=== PATIENT | female | born 1990 | race Caucasian/White ===

== ENCOUNTER 2017-02-16 11:29 | Emergency (ER) | payer MEDICAID | END 2017-02-16 15:21 | disposition home or self-care (01) | LOC: D.ER 11:29 | DX: O20.9 Hemorrhage in early pregnancy, unspecified (principal); Z3A.00 Weeks of gestation of pregnancy not specified; R10.9 Unspecified abdominal pain ==

== ENCOUNTER 2017-03-08 15:10 | Inpatient (IN) | payer MEDICAID ==
[2017-03-08 15:53] LABS: APPEARANCE TURBID (CLEAR); BILIRUBIN NEGATIVE (NEGATIVE); COLOR YELLOW (YELLOW); GLUCOSE NEGATIVE (NEGATIVE); KETONE NEGATIVE (NEGATIVE); NITRITE NEGATIVE (NEGATIVE); PROTEIN TRACE mg/dL (NEGATIVE); UROBILINOGEN NORMAL (NORMAL)
[2017-03-08 16:00] LABS: HEMATOCRIT 32.7 % (36.0-48.0); HEMOGLOBIN 11.6 g/dL (12-16); LYMPHOCYTES 13.9 % (15-50); MCH 30.9 pg (26.0-34.0); MCHC 35.5 g/dL (31.0-37.0); MCV 87.2 fL (80.0-100.0); MEAN PLATELET VOLUME 8.9 fL (7.4-10.4); NEUTROPHILS 80.8 % (40-80); PLATELET COUNT 297 10x3/uL (130-400); RBC 3.75 10x6/uL (4.00-5.40); RDW 12.3 % (11.5-14.5); WBC 11.2 10x3/uL (4.8-10.8)
[2017-03-08 16:10] LABS: AMORPHOUS SEDIMENT >1+ /lpf (NONE SEEN); BACTERIA MANY /hpf (NONE SEEN); CALCIUM OXALATE CRYSTALS 0-5 /hpf (NONE SEEN); GRANULAR CAST OCC /lpf (NONE SEEN); HYALINE CAST OCC /lpf (NONE SEEN)
[2017-03-08 16:17] LABS: ALBUMIN 3.1 g/dL (3.4-5.0); ALKALINE PHOSPHATASE 81 U/L (46-116); ALT (SGPT) 16 U/L (10-68); CALC OSMOLALITY 275 mosm/kg (275-300); CALCIUM 9.3 mg/dL (8.5-10.1); CARBON DIOXIDE 22.5 mmol/L (21.0-32.0); CHLORIDE - SERUM 106 mmol/L (98-107); CREATININE - SERUM 0.6 mg/dL (0.6-1.3); GLUCOSE 99 mg/dL (74-106); POTASSIUM - SERUM 3.6 mmol/L (3.5-5.1); PROTEIN - SERUM 7.2 g/dL (6.4-8.2); SODIUM 139 mmol/L (136-145); UREA NITROGEN 8 mg/dL (7-18); eGFR NON AFRICAN AMERICAN > 90 mL/min (90-120)
[2017-03-08 16:39] LABS: HCG - QUANTITATIVE (MATERNAL) 17896 mIU/mL
[2017-03-08 19:27] LABS: APPEARANCE HAZY (CLEAR); BILIRUBIN NEGATIVE (NEGATIVE); COLOR YELLOW (YELLOW); GLUCOSE NEGATIVE (NEGATIVE); KETONE LARGE mg/dL (NEGATIVE); NITRITE NEGATIVE (NEGATIVE); PROTEIN NEGATIVE (NEGATIVE); UROBILINOGEN NORMAL (NORMAL)
[2017-03-08 19:34] LABS: BACTERIA MANY /hpf (NONE SEEN); GRANULAR CAST RARE /lpf (NONE SEEN); HYALINE CAST RARE /lpf (NONE SEEN); MUCUS >1+ /lpf (NONE SEEN); WHITE CELLS - URINE >50 /hpf (0-5)
[2017-03-08 21:05] LABS: UDS - AMPHET NEGATIVE QUAL (NEGATIVE); UDS - BARB NEGATIVE QUAL (NEGATIVE); UDS - BENZO NEGATIVE QUAL (NEGATIVE); UDS - COCAINE NEGATIVE QUAL (NEGATIVE); UDS - OPIATE NEGATIVE QUAL (NEGATIVE); UDS - PCP NEGATIVE QUAL (NEGATIVE); UDS - THC NEGATIVE QUAL (NEGATIVE)
[2017-03-08 22:40] LABS: APPEARANCE HAZY (CLEAR); BILIRUBIN NEGATIVE (NEGATIVE); COLOR YELLOW (YELLOW); GLUCOSE 50 mg/dL (NEGATIVE); KETONE LARGE mg/dL (NEGATIVE); NITRITE POSITIVE (NEGATIVE); PROTEIN NEGATIVE (NEGATIVE); UROBILINOGEN NORMAL (NORMAL)
[2017-03-08 22:43] LABS: RED CELLS - URINE 0-5 /hpf (0-5)
[2017-03-08 22:44] LABS: BACTERIA MODERATE /hpf (NONE SEEN); WHITE CELLS - URINE 25-50 /hpf (0-5)
[2017-03-08 22:45] LABS: MUCUS <1+ /lpf (NONE SEEN)
--- NOTE | 2017-03-09 00:35 | NUR ---
PT ARRIVES TO UNIT VIA WC FROM ER FOR ADMISSION. PT AMBUALTES TO BR WITH NO ASSISTANCE TO VOID THEN TRANSFERS SELF TO BED. RN REMAINS AT PT BS FOR BARBI.
[2017-03-09 00:41] VITALS: BP 123/78; BMI 42.1
--- NOTE | 2017-03-09 01:25 | NUR ---
BARBI COMPLETE. PT IS A 26YO @ 16 WKS IUP WHO PRESENTED TO THE ER TODAY WITH C/O RIGHT FLANK PAIN AND BACK PAIN. PT ADMITTED WITH UTI AND POSSIBLE PYLO. 20G SL TO RIGHT HAND FLUSHED WITH 5CC NS WITHOUT DIFFICULTY. NO REDNESS OR EDEMA NOTED TO SITE. NS SET TO INFUSE VIA PUMP AT 200ML/HR PER ER MD ORDERS. SEE BARBI FOR FULL ASSESSMENT DETAILS. WATER MUG PROVIDED TO PT AT THIS TIME. POC DISCUSSED WITH PT, QUESTIONS ANSWERED. PT CURRENTLY HOMELESS. PT DENIES ANY NEEDS AT THIS TIME. BED IN LOW POSITION, SIDE RAILS UP TIMES 2, CALL LIGHT AND PHONE IN REACH. WILL CONT TO MONITOR PT STATUS.
--- NOTE | 2017-03-09 01:43 | NUR ---
RN TO PT BS TO HANG 1ST DOSE OF INVANZ 1GM IVPB. PT RESTING IN BED IN RIGHT TILT POSITION, WITH EYES CLOSED, IN NO ACUTE DISTRESS. RESPIRATIONS EVEN AND UNLABORED. PT AWAKENS EASILY WHEN SPOKEN TO. PT DENIES ANY NEEDS AT THIS TIME. BED IN LOW POSITION, SIDE RAILS UP TIMES 2, CALL LIGHT AND PHONE IN REACH. WILL CONT TO MONITOR PT STATUS.
--- NOTE | 2017-03-09 03:10 | NUR ---
PT. CALLED REQUESTING ADDITIONAL BLANKET. ROOM TEMP. COLD. AND ADJUSTED AND BLANKET GIVEN.
--- NOTE | 2017-03-09 04:40 | NUR ---
RN TO PT BS FOR ROUNDS. PT RESTING IN BED IN RIGHT TILT POSITION, WITH EYES CLOSED, IN NO ACUTE DISTRESS. RESPIRATIONS EVEN AND UNLABORED. BED IN LOW POSITION, SIDE RAILS UP TIMES 2, CALL LIGHT AND PHONE IN REACH. WILL CONT TO MONITOR PT STATUS.
[2017-03-09 05:31] VITALS: BP 131/60
--- NOTE | 2017-03-09 05:51 | NUR ---
RN CALLED TO PT BS TO ASSIST PT TO BR. PT AMBULATES TO BR WITH MINIMAL ASSISTANCE. PT ABLE TO VOID. PT RETURNED TO BED WITHOUT DIFFICLUTY. VS TAKEN AT THIS TIME. NEW BAG OF NS HUNG TO INFUSE VIA PUMP AT 200ML. FRESH ICE WATER PROVIDED TO PT AT THIS TIME. PT DENIES ANY FURTHER NEEDS. BED IN LOW POSITION, SIDE RAILS UP TIMES 2, CALL LIGHT AND PHONE IN REACH. WILL CONT TO MONITOR PT STATUS.
--- NOTE | 2017-03-09 07:30 | NUR ---
Called to room per pt request to provide assistance getting out of bed to bathroom. Encouragement given for pt to get up per self, she is able to do this with no assistance from RN. [place] pad and chux changed at this time. Voids 300ml of apparent clear urine but did not use castile soap prior to void as instructed, will attempt to collect next void for ordered UA.
[2017-03-09 07:33] LABS: BASOPHILS 0.1 % (0-2); EOSINOPHILS 0 % (0-7); HEMATOCRIT 29.3 % (36.0-48.0); HEMOGLOBIN 10.2 g/dL (12-16); IMMATURE GRANULOCYTES 0.3 % (0-5); LYMPHOCYTES 2.5 % (15-50); MCHC 34.8 g/dL (31.0-37.0); MCV 89.1 fL (80.0-100.0); MEAN PLATELET VOLUME 9.4 fL (7.4-10.4); MONOCYTES 5.2 % (2-11); NEUTROPHILS 91.9 % (40-80); RBC 3.29 10x6/uL (4.00-5.40); RDW 12.6 % (11.5-14.5); WBC 13.6 10x3/uL (4.8-10.8)
[2017-03-09 07:34] LABS: PLATELET COUNT 207 10x3/uL (130-400)
[2017-03-09 07:47] LABS: ALBUMIN 2.3 g/dL (3.4-5.0); ALKALINE PHOSPHATASE 64 U/L (46-116); ALT (SGPT) 13 U/L (10-68); BILIRUBIN - TOTAL 0.45 mg/dL (0.2-1.3); CALC OSMOLALITY 269 mosm/kg (275-300); CALCIUM 7.9 mg/dL (8.5-10.1); CARBON DIOXIDE 17.6 mmol/L (21.0-32.0); CHLORIDE - SERUM 104 mmol/L (98-107); CREATININE - SERUM 0.5 mg/dL (0.6-1.3); GLUCOSE 122 mg/dL (74-106); POTASSIUM - SERUM 3.3 mmol/L (3.5-5.1); PROTEIN - SERUM 5.6 g/dL (6.4-8.2); SODIUM 136 mmol/L (136-145); UREA NITROGEN 3 mg/dL (7-18); eGFR NON AFRICAN AMERICAN > 90 mL/min (90-120)
[2017-03-09 08:00] VITALS: BP 117/54
--- NOTE | 2017-03-09 08:00 | NUR ---
Pt complains of pain "just everywhere" VSS as charted on graph, Lungs clear and bowel sounds active x 4, pt does have a non-productive cough when questioned how long cough has been present her responses is "forever" IV fluids changed to D5%LR per MD orders. Pt noted to be flat on her back with head of bed elevated, explained why side lying or tilt was better during she does turn herself to left lateral, pillow to her back and between knees to assist with pain, she does complain that she never lays on her side because it does not "feel right" Rates pain at 4/10 that is constant and "all over" tylenol offered but she refuses at this time. Large apple juice per request, side rails up x 2 with phone and call light in reach and lights turned off per request.
--- NOTE | 2017-03-09 09:18 | NUR ---
Pt continues to be on left side, eyes closed and resp even. No distress noted so pt is left undisturbed at this time.
[2017-03-09 11:03] VITALS: BP 101/59
--- NOTE | 2017-03-09 11:03 | NUR ---
antibiotics via IVPB completed. Pt awake at this time and complaining/moaning rates pain at 10/10. Encouraged her to get up and void since she has not done so since 0730this am. She is able to get up per herself, verbal instructions given again to wash with castile soap wipes x 3 prior to collection of urine. Back to bed attempts to reposition to left side but complains that her left hand "feels numb" suggested that she change to her right side, pt does this and pillows placed to her back, between her knees and small pillow provided for use under abdomen. Tylenol per orders offered for pain relief and she is agreeable, also request sprite to drink. side rails up x 2 with phone in reach.
--- NOTE | 2017-03-09 11:10 | NUR ---
Meds given as charted on emar. lights turned off per pt reqeust.
[2017-03-09 11:26] LABS: APPEARANCE CLEAR (CLEAR); BILIRUBIN NEGATIVE (NEGATIVE); COLOR YELLOW (YELLOW); GLUCOSE 1000 mg/dL (NEGATIVE); KETONE LARGE mg/dL (NEGATIVE); NITRITE NEGATIVE (NEGATIVE); PROTEIN NEGATIVE (NEGATIVE); UROBILINOGEN NORMAL (NORMAL)
[2017-03-09 11:27] LABS: BACTERIA FEW /hpf (NONE SEEN); EPITHELIAL CELLS 0-5 /hpf (0-5); MUCUS <1+ /lpf (NONE SEEN); RED CELLS - URINE 0-5 /hpf (0-5)
--- NOTE | 2017-03-09 11:30 | NUR ---
temp rechecked and is 98.9 at this time. No needs voiced.
--- NOTE | 2017-03-09 11:45 | NUR ---
Pain reassesment at this time. Pt remains on her right side with eyes closed and resp even, no distress noted, left undisturbed at this time. Side rails are up x 2, phone and call light are within her reach.
--- NOTE | 2017-03-09 12:05 | NUR ---
Current UA and day [address] culture results [address] to Dr Justin, no new orders received.
--- NOTE | 2017-03-09 14:30 | NUR ---
New bag D5NS hung and infusing per orders. Pt turned to left side with eyes closed and resp even, responds to verbal stimuli and denies needs. Side rails up x 2 with phone and call light in reach.
--- NOTE | 2017-03-09 15:54 | NUR ---
Rounds made, pt turned to left lateral with eyes closed, resp even. No distress noted, pt left undisturbed at this time. Side rails remain up x 2 with her phone and call light in reach.
--- NOTE | 2017-03-09 18:00 | NUR ---
Pt awake and ask to get in to the shower at this time. IV saline locked and pt up per self to shower, bed linens changed at this time. Pt will call when back to bed.
--- NOTE | 2017-03-09 18:55 | NUR ---
Called to room, pt dressed and in bed. IV reconnected and infusing per order. IVPB started as charted in [facility]. Pt ask for some chicken broth and large ice water. No other needs at this time.
--- NOTE | 2017-03-09 19:40 | NUR ---
RN TO PT BS FOR BARBI. PT RESTING IN BED IN RIGHT LATEAL POSITION, WITH EYES CLOSED IN NO ACUTE DISTRESS. PT AWAKENS EASILY WHEN SPOKEN TO. PT IS A 26YO @ 16 WKS IUP ADMITTED WITH SUSPECTED PYLEO. AAOX3. HR REGULAR WITH TACHYCARDIA NOTED, DR. WILLARD NOTIFIED AND AWARE. PT HYPOTENSIVE WITH LARGE B/P CUFF, CUFF CHANGED TO REGULAR CUFF WITH READING OF 124/56 OBTAINED. LUNGS CTAB. PT WITH NON PRODUCTIVE COUGH. PT HOT AND DRY TO TOUCH WITH TEMP OF 102.0. PER DR. WILLARD WITH PROVIDE PT WITH TYLENOL 650MG PO NOW AND DRAW BLOOD CULTURES TIMES 2. ABDOMEN SOFT AND TENDER. BS ACTIVE TIMES 4. RIGHT FLANK PAIN AND BACK PAIN PRESENT. PT REPORTS PAIN WITH URINATION. URINE CONCENTRATED AND CAROL ANN. FHT'S OBTAINED, 170-180'S. RANJIT PAD AND PANTIES IN PLACE. NO VAGINAL DISCHARGE NOTED. NO SWELLING NOTED TO UPPER OR LOWER EXTREMITIES BILATERLLY. D5 1/2 NS INFUSING VIA PUMP AT 200ML/HR TO EXISTING 20 G IV IN RIGHT HAND. NO REDNESS OR EDEMA NOTED TO SITE. PT PROVIDED WITH FRESH ICE WATER. PT TOLERATING LIQUIDS. PT RATES PAIN 7/10 AT THIS TIME. PT DENIES ANY FURTHER NEEDS. BED IN LOW POSITION, SIDE RAILS UP TIMES 2, CALL LIGHT AND PHONE IN REACH. CLINICAL LAB CALLED AND NOTIFIED OF NEED FOR BLOOD CULTURES TIMES 2. WILL CONT TO MONITOR MATERNAL AND STATUS.
[2017-03-09 19:46] VITALS: BP 124/56
--- NOTE | 2017-03-09 19:51 | NUR ---
SPOKE WITH DR. WILLARD REGARDING PT VS AND TEMP OF 102.0. PER MD, PROVIDE PT WITH TYLENOL PO NOW AND DRAW BLOOD CULTURES TIMES 2. ORDERS PLACED AND NOTED.
--- NOTE | 2017-03-09 20:19 | NUR ---
SCD'S PLACED TO LOWER EXTREMITIES BILATEALLY. CLINICAL LAB AT PT BS TO DRAW BLOOD CULTURES.
--- NOTE | 2017-03-09 21:07 | NUR ---
TEMP RECHECK 100.5, IMPROVED, WILL CONT TO MONITOR
--- NOTE | 2017-03-09 22:02 | NUR ---
PT ASSISTED TO BR. PT AMBULATED TO BR WITH NO ASSISTANCE. TEMP RECHECKED, NOW 97.2 AXILLARY. FRESH SPRITE PROVIDED TO PT AT THIS TIME. PT DENIES ANY FURTHER NEEDS AT THIS TIME. BED IN LOW POSITION, SIDE RAILS UP TIMES 2, CALL LIGHT AND PHONE IN REACH. VISITORS TIMES 3 AT PT BS FOR SUPPORT AND ASSISTANCE. WILL CONT TO MONITOR MATERNAL AND STATUS.
[2017-03-09 23:32] VITALS: BP 113/56
--- NOTE | 2017-03-09 23:32 | NUR ---
RN TO PT BS TO PERFORM VS. PT RESTING IN BED IN RIGHT LATERAL POSITION, WITH EYES CLOSED, IN NO ACUTE DISTRESS. RESPIRATIONS EVEN AND UNLABORED. PT AWAKENS EASILY WHEN SPOKEN TO. VS TAKEN, WNL. PT DENIES ANY FURTHER NEEDS AT THIS TIME. BED IN LOW POSITION, SIDE RAILS UP TIMES 2, CALL LIGHT AND PHONE IN REACH. SO AT PT BS FOR SUPPORT AND ASSISTANCE. WILL CONT TO MONITOR PT STATUS.
[2017-03-10] VITALS (7 sets, daily range): BP systolic 101–117; BP diastolic 54–58
--- NOTE | 2017-03-10 00:16 | NUR ---
RN TO PT BS. PT RESTING IN BED IN LEFT LATERAL POSITION, WITH EYES CLOSED, IN NO ACUTE DISTRESS. RESPIRATIONS EVEN AND UNLABORED. NEW BAG OF D5 1/2 NS HUNG TO INFUSE VIA PUMP AT 200CC/HR. SO REMAINS AT PT BS FOR SUPPORT AND ASSISTANCE. BED IN LOW POSITION, SIDE RAILS UP TIMES 2, CALL LIGHT AND PHONE IN REACH. WILL CONT TO MONITOR PT STATUS.
--- NOTE | 2017-03-10 01:48 | NUR ---
RN TO PT BS. PT RESTING IN BED IN LEFT LATERAL POSITION, WITH EYES CLOSED, IN NO ACUTE DISTRESS. RESPIRATIONS EVEN AND UNLABORED. 0200 DOSE OF MEROPENEM HUNG IVPB TO INFUSE VIA PUMP. BED IN LOW POSITION, SIDE RAILS UP TIMES 2, CALL LIGHT AND PHONE IN REACH. SO REMAINS AT PT BS FOR SUPPORT AND ASSISTANCE. WILL CONT TO MONITOR PT STATUS.
--- NOTE | 2017-03-10 03:29 | NUR ---
RN TO PT BS. PT AMBULATED TO BR WITH MINIMAL ASSISTANCE NEEDED. VS TAKEN, WNL. PT DENIES ANY NEEDS AT THIS TIME. SO REMAINS AT PT BS FOR SUPPORT AND ASSISTANCE. BED IN LOW POSITION, SIDE RAILS UP TIMES 2, CALL LIGHT AND PHONE IN REACH. WILL CONT TO MONITOR PT STATUS.
--- NOTE | 2017-03-10 04:42 | NUR ---
CLINICAL LAB AT PT BS FOR AM DRAW.
[2017-03-10 04:59] LABS: BASOPHILS 0 % (0-2); EOSINOPHILS 0.2 % (0-7); HEMOGLOBIN 8.9 g/dL (12-16); IMMATURE GRANULOCYTES 0.2 % (0-5); MCH 30.4 pg (26.0-34.0); MCHC 34.2 g/dL (31.0-37.0); MCV 88.7 fL (80.0-100.0); MEAN PLATELET VOLUME 9.4 fL (7.4-10.4); MONOCYTES 8.5 % (2-11); NEUTROPHILS 83.1 % (40-80); RBC 2.93 10x6/uL (4.00-5.40); RDW 12.7 % (11.5-14.5)
[2017-03-10 05:00] LABS: PLATELET COUNT 164 10x3/uL (130-400); WBC 6.6 10x3/uL (4.8-10.8)
--- NOTE | 2017-03-10 05:55 | NUR ---
SPOKE WITH DR. WILLARD REGARDING AM LAB RESULTS. PER MD, WILL REPEAT CBC WITH PT AND PTT, WILL ORDER PELVIC US FOR EVALUATION. ORDERS PLACED AND NOTED.
--- NOTE | 2017-03-10 06:16 | NUR ---
RN TO PT BS. VS RECHECKED. TEMP NOW 100.6 AXILLARY. PT MEDICATED WITH TYLENOL 650MG PO. NEW BAG OF D5 1/2 NS HUNG TO INFUSE VIA PUMP AT 200CC/HR. PT DENIES ANY FURTHER NEEDS AT THIS TIME. SO REMAINS AT PT BS FOR SUPPORT AND ASSISTANCE. BED IN LOW POSITION, SIDE RAILS UP TIMES 2, CALL LIGHT AND PHONE IN REACH. WILL CONT TO MONITOR PT STATUS.
[2017-03-10 06:22] LABS: BASOPHILS 0 % (0-2); EOSINOPHILS 0.2 % (0-7); HEMATOCRIT 26.2 % (36.0-48.0); IMMATURE GRANULOCYTES 0.2 % (0-5); LYMPHOCYTES 7.5 % (15-50); MCH 30.4 pg (26.0-34.0); MCHC 34.4 g/dL (31.0-37.0); MCV 88.5 fL (80.0-100.0); MEAN PLATELET VOLUME 9.1 fL (7.4-10.4); NEUTROPHILS 85.1 % (40-80); PLATELET COUNT 151 10x3/uL (130-400); RBC 2.96 10x6/uL (4.00-5.40); RDW 12.8 % (11.5-14.5); WBC 6.5 10x3/uL (4.8-10.8)
[2017-03-10 06:34] LABS: INR 1.3 (0.85-1.17)
[2017-03-10 06:35] LABS: APTT 33.7 SECONDS (22.8-39.4)
--- NOTE | 2017-03-10 06:42 | NUR ---
ELIEL WITH US ON UNIT. IV SALINE LOCKED. PT TRANSPORTED TO US FOR PELVIC US VIA WC. POC DISCUSSED WITH PT AND FAMILY AT BS. QUESTIONS ANSWERED.
--- NOTE | 2017-03-10 07:02 | NUR ---
SHIFT REPORT GIVEN TO Danika CLOUD RN
--- NOTE | 2017-03-10 07:26 | NUR ---
Pt brought back to room by wheelchair and able to transfer to bed per self. VSS as charted on flowsheet, temp 98.0 at this time. Pt continue to complain of pain on her right side that she rates at 8/10. IV reconnected and infusing per order via Ivac. Several visitors in room and pt is able to talk with them without noticable complaint.
--- NOTE | 2017-03-10 07:34 | NUR ---
New lab order received from Dr Justin for peripheral smear. Lab notified of this, spoke with Renee to verify correct test ordered.
--- NOTE | 2017-03-10 09:18 | NUR ---
towels and clean gown provided per pt request to take a shower. Bed linens changed at this time, pt to call for nurse to reconnect iv when finished with shower, friend remains at bedside.
--- NOTE | 2017-03-10 11:00 | NUR ---
Dr Justin on unit and in to assess patient status, New orders received.
--- NOTE | 2017-03-10 11:29 | NUR ---
Dr Pretty office notified of consult and facesheet to be faxed.
--- NOTE | 2017-03-10 11:38 | NUR ---
lab notified and verified that type/screen was done, and that continue to show pending in computer. Also verified PRBC 1 unit order to infuse was recieved.
--- NOTE | 2017-03-10 14:48 | NUR ---
CM MET WITH PATIENT AND FRIEND TO DISCUSS DISCHARGE PLANNING / NEEDS. PATIENT STATES SHE IS HOMELESS. WAS STAYING WITH HER FRIEND PIERCE IN A MOTEL PRIOR TO HOSPITALIZATION. CM GAVE PATIENT LIST OF SHELTERS BY [facility]. CM GAVE PATIENT INFORMATION ON CRISIS CENTER AND COMMUNITY SERVICES OFFICE. PATIENT STATES SHE IS VERY FAMILIAR WITH THE LOCAL SHELTERS. CM INSTRUCTED PATIENT TO START CALLING SHELTERS TODAY IN ANTICIPATION OF DISCHARGE TOMORROW. PATIENT STATES SHE WILL CALL CRISIS CENTER AND SHELTERS TODAY. CM ALSO GAVE PATIENT PHONE NUMBER TO [id number] SINCE PATIENT DOES NOT HAVE A PCP. CM WILL CONTINUE TO FOLLOW AND ASSIST PRN WITH DISCHARGE PLANNING / NEEDS. Is the patient Alert and Oriented? Yes * How many steps to enter\exit or inside your home? NA * PCP NONE * Pharmacy [facility] * Preadmission Environment Homeless * Other Environment LIVED IN MOTEL WITH FRIEND * ADLs Independent * Equipment None * List name and contact numbers for known caregivers / representatives who currently or will assist patient after discharge: PIERCE VELIZ, FRIEND, * Community resources currently utilized Other * Please name any agencies selected above. [facility] SHELTERS * Additional services required to return to the preadmission environment? No * Can the patient safely return to the preadmission environment? Yes * Has this patient been hospitalized within the prior 30 days at any hospital? Yes
--- NOTE | 2017-03-10 15:00 | NUR ---
Lab calls that RBC is ready. Attempt to start 2nd iv for transfusion but unsuccessful with 18gauge to left wrist. Pt c/o being nauseated at this time, cold was cloth provided. Chelo Montgomery rn asked to attempt to start 2nd IV. Pt understands plan of care at this time. Large ice water per request. 500ml emptied from [facility] after pt states that she has been up x 1 to void.
--- NOTE | 2017-03-10 15:45 | NUR ---
18 GAUGE SALINE LOCK STARTED X 1 VENIPUNCTURE TO LEFT HAND. FLUSHES EASILY WITH 10 ML NS. SITE CLEAR. PT VY WELL.
--- NOTE | 2017-03-10 16:30 | NUR ---
Verified with pt her understanding of blood transfusion and consents signed.
--- NOTE | 2017-03-10 16:45 | NUR ---
VSS as charted on flowsheet. PRBC started at 100ml to infuse 50ml to r hand iv site Zofran 4mg slow iv push for continue complaint of nausea and tylenol 625mg po for complaint of headache prior to transfusion. Positioned to her left side for comfort. side rails up x 2 with phone and call light in reach.
--- NOTE | 2017-03-10 17:00 | NUR ---
No complaints with first 50ml of transfusion. Rate increased to 200ml/hr with volume adjusted to 200ml. Lights turned out per pt request.
--- NOTE | 2017-03-10 17:50 | NUR ---
Called to room with complaint of being Hot. temp rechecked and remains same at 100.0, pt covered with 2 large white blankets and sheet, room temp is 80 degrees. One blanket is removed and temp adjusted to 75. Approx 50ml of RBC left to infuse, pt to call out when Ivac beeps, will recheck her temp at that time. Call light with in reach with side rails up x 2.
--- NOTE | 2017-03-10 18:32 | NUR ---
rbc completed and now being flushed with 200ml ns via pump
--- NOTE | 2017-03-10 18:35 | NUR ---
Dr Adams on unit with current labs reviewed and md in to visit with pt. states that he would order new labwork and see her in am. Verified that is labs WNL could d/c tomorrow if no further complications, States he will order labs to be done tonight so that he will be able to review in am but does not see any reason she can not be d/c in am. Consult placed in [facility] for Dr Pham due to blood culture results.
--- NOTE | 2017-03-10 19:00 | NUR ---
Dr Pham returns page, report given of pt history and lab/blood culture results. Also report that pt currently on iv antibiotics and has been admit on Friday night. states that pt appears stable and she will round on her in the am.
--- NOTE | 2017-03-10 19:19 | NUR ---
RN TO PT BS. BLOOD TRANSFUSION COMPLETE. 18G IV TO LEFT HAND SALINE LOCKED AT THIS TIME. VS TAKEN AND WNL. REPORT GIVEN TO DAYSHIFT RN TO CHART COMPLETION.
--- NOTE | 2017-03-10 19:19 | NUR ---
blood transfusion completed and vital signs on transfusion card in chart. Report to Marysol Mann rn.
--- NOTE | 2017-03-10 19:30 | NUR ---
RN TO PT BS FOR BARBI. PT RESTING IN BED IN SEMI-FOWLERS POSITION, WITH EYES CLOSED, IN NO ACUTE DISTRESS. PT AWAKENS EASILY WHEN SPOKEN TO. PT IS A 26YO @ 16 WKS IUP ADMITTED WITH SUSPECTED PYLEO. AAOX3. HR REGULAR WITH OCCASIONAL TACHYCARDIA NOTED, DR. WILLARD AWARE. LUNGS CTAB. PT WITH NON PRODUCTIVE COUGH. PT WARM AND DRY TO TOUCH WITH TEMP OF 99.0. ABDOMEN SOFT AND NON TENDER. BS HYPOACTIVE TIMES 4. PT STATES SHE IS PASSING GAS, HAS NOT HAD A BM SINCE ADMISSION. FHR 150-160. NO VAGINAL DISCHARGE NOTED. PT REPORTS RIGHT FLANK PAIN AND BACK PAIN. RATES PAIN 6/10. NO SWELLING NOTED TO UPPER OR LOWER EXTREMITIES BILATERALLY. D5 1/2 NS INFUSING VIA PUMP AT 125CC/HR TO EXISTING 20 G IV IN RIGHT HAND, NO REDNESS OR EDEMA NOTED TO SITE. 18G SL IN PLACE TO LEFT HAND, FLUSHED WITH 5CC NS WITHOUT DIFFICULTY. NO REDNESS OR EDEMA NOTED TO SITE. SCD'S IN PLACE TO LOWER EXTREMITIES BILATERALLY. DR. RIVERA AND DR. PISANO HAVE BEEN CONSULTED PER DR. WILLARD. PT TRAY REMAINS AT PT BS. PT STATES SHE WOULD LIKE TO CONTINUE TO TRY TO EAT. PT DENIES ANY FURTHER NEEDS AT THIS TIME. BED IN LOW POSITION, SIDE RAILS UP TIMES 2, CALL LIGHT AND PHONE IN REACH. WILL CONT TO MONITOR PT STATUS.
--- NOTE | 2017-03-10 20:05 | NUR ---
PT AMBULATED TO BR WITH NO ASSITANCE.
--- NOTE | 2017-03-10 20:40 | NUR ---
CLINICAL LAB AT PT BS TO OBTAINED ORDERED BLOOD WORK.
--- NOTE | 2017-03-10 21:08 | NUR ---
RN TO PT BS. PT RESTING IN BED IN LEFT LATERAL POSITION, WITH EYES CLOSED, IN NO ACUTE DISTRESS. RESPIRATIONS EVEN AND UNLABORED. 2100 DOSE OF MEROPENEM 1000MG HUNG TO INFUSE VIA PUMP AT THIS TIME. 1 HOUR POST TRANSFUSION VS TAKEN AND WNL. PT DONE WITH DINNER TRAY. APPROXIMATELY 50% OF DIET EATEN. PT DENIES ANY FURTHER NEEDS AT THIS TIME. BED IN LOW POSITION, SIDE RAILS UP TIMES 2, CALL LIGHT AND PHONE IN REACH. WILL CONT TO MONITOR PT STATUS.
[2017-03-10 21:21] LABS: % SATURATION 2 % (15-55); IRON 6 ug/dl (35-150); TOTAL IRON BIND CAPACITY 276 ug/dl (260-445); UNSAT IRON BIND CAPACITY 270 ug/dl (150-375)
--- NOTE | 2017-03-10 21:40 | NUR ---
RN TO PT BS FOR ROUNDS. PT RESTING IN BED IN LEFT LATERAL POSITION, WITH EYES CLOSED, IN NO ACUTE DISTRESS. RESPIRATIONS EVEN AND UNLABORED. BED IN LOW POSITION, SIDE RAILS UP TIMES 2, CALL LIGHT AND PHONE IN REACH. WILL CONT TO MONITOR PT STATUS.
--- NOTE | 2017-03-10 23:26 | NUR ---
RN TO PT BS TO PERFROM VS. PT RESTING IN BED IN RIGHT LATERAL POSITION, WITH EYES CLOSED, IN NO ACUTE DISTRESS. RESPIRATIONS EVEN AND UNLABORED. VS TAKEN, WNL. FRESH WATER PROVIDED TO PT AT THIS TIME. PT DENIES ANY FURTHER NEEDS AT THIS TIME. BED IN LOW POSITION, SIDE RAILS UP TIMES 2, CALL LIGHT AND PHONE IN REACH. SO AT PT BS FOR SUPPORT AND ASSISTANCE. WILL CONT TO MONITOR PT STATUS.
--- NOTE | 2017-03-11 00:27 | NUR ---
RN TO PT BS TO CHANGE BAG OF FLUID. PT RESTING IN BED IN LEFT LATERAL POSITION, WITH EYES CLOSED, IN NO ACUTE DISTRESS. RESPIRATIONS EVEN AND UNLABORED. NEW BAG OF D5 1/2 NS HUNG TO INFUSE VIA PUMP AT 125CC/HR. BED IN LOW POSITION, SIDE RAILS UP TIMES 2, CALL LIGHT AND PHONE IN REACH. SO REMAINS AT PT BS FOR SUPPORT AND ASSISTANCE. WILL CONT TO MONITOR PT STATUS.
--- NOTE | 2017-03-11 02:40 | NUR ---
RN TO PT BS FOR ROUNDS. PT RESTING IN BED IN SEMI-FOWLERS POSITION, WITH EYES CLOSED, IN NO ACUTE DISTRESS. RESPIRATIONS EVEN AND UNLABORED. BED IN LOW POSITION, SIDE RAILS UP TIMES 2, CALL LIGHT AND PHONE IN REACH. SO REMAINS AT PT BS FOR SUPPORT AND ASSISTANCE. WILL CONT TO MONITOR PT STATUS.
[2017-03-11 04:14] VITALS: BP 104/64
--- NOTE | 2017-03-11 04:14 | NUR ---
RN TO PT BS FOR VS. PT RESTING IN BED IN LEFT LATERAL POSITION, WITH EYES CLOSED, IN NO ACUTE DISTRESS. RESPIRATIONS EVEN AND UNLABORED. PT AWAKENS EASILY WHEN SPOKEN TO. VS TAKEN, WNL. PT DENIES ANY NEEDS AT THIS TIME. BED IN LOW POSITION, SIDE RAILS UP TIMES 2, CALL LIGHT AND PHONE IN REACH. SO REMAINS AT PT BS FOR SUPPORT AND ASSISTANCE. WILL CONT TO MONITOR PT STATUS.
--- NOTE | 2017-03-11 04:59 | NUR ---
RN TO PT BS. PT RESTING IN BED IN RIGHT LATERAL POSITION IN NO ACUTE DISTRESS. RESPIRATIONS EVEN AND UNLABORED. 0500 DOSE OF MEROPENEM 1000MG HUNG TO INFUSE VIA IVPB PUMP. PT DENIES ANY FURTHER NEEDS AT THIS TIME. BED IN LOW POSITION, SIDE RAILS UP TIMES 2, CALL LIGHT AND PHONE IN REACH. SO REMAINS AT PT BS FOR SUPPORT AND ASSISTANCE. WILL CONT TO MONITOR PT STATUS.
--- NOTE | 2017-03-11 07:15 | NUR ---
DR WILLARD IN UNIT.REQUESTS TO BE CALLED WHEN DR HER SEES PT.
--- NOTE | 2017-03-11 08:00 | NUR ---
ENTERED ROOM FOR ASSESSMENT -PT RESTING WITH EYES CLOSED- OPENS EYES WHEN NAME CALLED. VS DONE. WHEN QUESTIONED STATES THAT HAS SOME PAIN RT SIDE OF ABD AND STOMACH. PT GROWNS AND FLINCHES TO LIGHT TOUCH OF LOWER-MID ABD. ABD SOFT. NEGRO AT WILL. SCD'S ON.
[2017-03-11 08:05] VITALS: BP 123/68
--- NOTE | 2017-03-11 08:30 | NUR ---
pt rings call light. requesting more cunningham with breakfast- states she cannot eat the eggs.
[2017-03-11 08:39] LABS: BASOPHILS 0 % (0-2); HEMATOCRIT 28.3 % (36.0-48.0); IMMATURE GRANULOCYTES 0.1 % (0-5); LYMPHOCYTES 15.4 % (15-50); MCHC 35.3 g/dL (31.0-37.0); MCV 87.6 fL (80.0-100.0); MEAN PLATELET VOLUME 9.4 fL (7.4-10.4); MONOCYTES 9.2 % (2-11); NEUTROPHILS 74.3 % (40-80); RBC 3.23 10x6/uL (4.00-5.40); RDW 12.6 % (11.5-14.5); WBC 6.9 10x3/uL (4.8-10.8)
[2017-03-11 08:42] LABS: PLATELET COUNT 183 10x3/uL (130-400)
[2017-03-11 08:50] LABS: INR 1.15 (0.85-1.17); PROTIME 14.6 SECONDS (11.6-15.0)
--- NOTE | 2017-03-11 09:28 | NUR ---
LAB IN ROOM FOR BLOOD CULTURE DRAW.
--- NOTE | 2017-03-11 09:30 | NUR ---
pt at half of biscuit and several pieces of cunningham.
--- NOTE | 2017-03-11 10:33 | NUR ---
UP TO BATHROOM TO SHOWER. LINENS CHANGED.
--- NOTE | 2017-03-11 10:55 | NUR ---
IV IN RT HAND REMOVED WITH CATH INTACT- WAS PLACED ON 03-08-17. BANDAIDE APPLIED. IV FLUIDS CHANGED TO LT HAND POST SALINE LOCK FLUSHED WITH NS.
--- NOTE | 2017-03-11 10:56 | NUR ---
INTO BED AFTER SHOWER- NO REQUESTS.
--- NOTE | 2017-03-11 12:15 | NUR ---
DR PISANO HERE TO SEE PT.
--- NOTE | 2017-03-11 12:24 | NUR ---
CM met with patient to follow up on discharge planning / needs. Patient states she has not yet called shelters, [facility] or [employer]. CM encouraged patient to call shelters and [facility] today. Patient stated she would start calling them when her friend returns today. CM discussed patient plan of care with Dr. Pham. Anticipate possible discharge Friday when culture results. May need 14 days of outpatient IV antibiotics. CM will need to arrange outpatient IV antibiotics and transportation at dischare. CM will continue to follow and assist with discharge planning / needs.
[2017-03-11 13:00] VITALS: BP 131/77
--- NOTE | 2017-03-11 13:07 | NUR ---
resting on lt side. states has not eaten lunch. states "when i eat it hurts my stomach" pt states she is eating a little at a time.
[2017-03-11 16:27] VITALS: BP 126/73
--- NOTE | 2017-03-11 16:29 | NUR ---
sitting up in bed looking at phone. denies needs.
--- NOTE | 2017-03-11 19:30 | NUR ---
RN TO PT BS FOR BARBI. PT RESTING IN BED IN LEFT LATERAL POSITION, TALKING ON PHONE, IN NO ACUTE DISTRESS. PT ENDS PHONE CALL WHEN RN ENTERS ROOM. PT IS A 26YO @ 16WKS IUP ADMITTED WITH SUSPECTED PYELO. AAOX3. HR REGULAR. LUNGS CTAB. PT WITH NON PRODUCTIVE COUGH. PT WARM AND DRY TO TOUCH WITH TEMP OF 98.1. ABDOMEN SOFT AND NON TENDER. BS ACTIVE TIMES 4. PT STATES SHE IS PASSING GAS BUT HAS NOT HAD A BM SINCE ADMISSION. FHR 160-170. NO VAGINAL DISCHARGE NOTED. PT REPORTS RIGHT FLANK PAIN AND BACK PAIN. RATES PAIN 6/10. NO SWELLING NOTED TO LOWER EXTREMITIES BILATERALLY. RIGHT HAND MILDLY SWOLLEN DUE TO INFILTRATED IV EARLIER TODAY. D5 1/2 NS INFUSING VIA PUMP AT 125CC/HR TO EXISTING 18G IV IN LEFT HAND, NO REDNESS, EDEMA, OR DRAINAGE NOTED TO SITE. SCD'S IN PLACE TO LOWER EXTREMITIES BILATERALLYU. FABIÁN MORRISON AND ALIYA CONSULTED ON PT CARE. PT DESIRES TO SHOWER AT THIS TIME. IV SALINE LOCKED AND SITE COVERED. FRESH LINENS PROVIDED TO PT AT THIS TIME. PT ALSO PROVIDED WITH SANDWICH TRAY AND CHICKEN NOODLE SOUP WITH FRESH WATER. PT DENIES ANY FURTHER NEEDS AT THIS TIME. BED IN LOW POSITION, SIDE RAILS UP TIMES 2, CALL LIGHT AND PHONE IN REACH. WILL CONT TO MONITOR PT STATUS.
[2017-03-11 19:52] VITALS: BP 133/69
--- NOTE | 2017-03-11 20:13 | NUR ---
RN TO PT BS. PT SHOWER IS COMPLETE. D5 1/2 NS RETURNED TO INFUSE VIA PUMP AT 125CC/HR. PT DESIRES TO AMBULATE. PT AMBULATED ON UNIT FOR 5 MIN THEN RETURNED TO BED. PT TOLERATED AMBULATION WELL. AMBULATED WITHOUT ASSISTANCE. PT DENIES ANY FURTHER NEEDS AT THIS TIME. BED IN LOW POSITION, SIDE RAILS UP TIMES 2, CALL LIGHT AND PHONE IN REACH. WILL CONT TO MONITOR PT STATUS.
--- NOTE | 2017-03-11 21:37 | NUR ---
RN TO PT BS FOR ROUNDS. PT RESTING IN BED IN LEFT LATERAL POSITION, WITH EYES CLOSED, IN NO ACUTE DISTRESS. RESPIRATIONS EVEN AND UNLABORED. PT AWAKENS EASILY WHEN SPOKEN TO. 2100 DOSE OF IRON PROVIDED TO PT AT THIS TIME. PT DENIES ANY FURTHER NEEDS. BED IN LOW POSITION, SIDE RAILS UP TIMES 2, CALL LIGHT AND PHONE IN REACH. WILL CONT TO MONITOR PT STATUS.
[2017-03-11 23:27] VITALS: BP 114/71
--- NOTE | 2017-03-11 23:28 | NUR ---
RN TO PT BS TO PERFORM VS. PT RESTING IN BED IN LEFT LATERAL POSITION, WITH EYES CLOSED, IN NO ACUTE DISTRESS. RESPIRATIONS EVEN AND UNLABORED. PT AWAKENS EASILY WHEN SPOKEN TO. VS TAKEN AND WNL. PT DENIES ANY FURTHER NEEDS AT THIS TIME. BED IN LOW POSITION, SIDE RAILS UP TIMES 2, CALL LIGHT AND PHONE IN REACH. WILL CONT TO MONITOR PT STATUS.
--- NOTE | 2017-03-12 02:37 | NUR ---
RN TO PT BS TO HANG ANTIBIOTICS. PT RESTING IN BED IN RIGHT LATERAL POSITION, WITH EYES CLOSED, IN NO ACUTE DISTRESS. RESPIRATIONS EVEN AND UNLABORED. 0300 DOSE OF OF MAXIPIME 2GM HUNG IVPB TO INFUSE VIA PUMP. BED IN LOW POSITION, SIDE RAILS UP TIMES 2, CALL LIGHT AND PHONE IN REACH. WILL CONT TO MONITOR PT STATUS.
[2017-03-12 03:37] VITALS: BP 108/60
--- NOTE | 2017-03-12 03:38 | NUR ---
RN TO PT BS. VS TAKEN AND WNL. NEW BAG D5 1/2 NS HUNG TO INFUSE VIA PUMP AT 125CC/HR. PT DENIES ANY NEEDS AT THIS TIME. BED IN LOW POSITION, SIDE RAILS UP TIMES 2, CALL LIGHT AND PHONE IN REACH. WILL CONT TO MONITOR PT STATUS.
[2017-03-12 08:00] LABS: BASOPHILS 0.2 % (0-2); EOSINOPHILS 1.8 % (0-7); HEMATOCRIT 30.1 % (36.0-48.0); HEMOGLOBIN 10.4 g/dL (12-16); IMMATURE GRANULOCYTES 0.4 % (0-5); LYMPHOCYTES 23.8 % (15-50); MCH 30.6 pg (26.0-34.0); MCHC 34.6 g/dL (31.0-37.0); MCV 88.5 fL (80.0-100.0); MONOCYTES 12.1 % (2-11); NEUTROPHILS 61.7 % (40-80); PLATELET COUNT 203 10x3/uL (130-400); RDW 12.6 % (11.5-14.5); WBC 5.6 10x3/uL (4.8-10.8)
[2017-03-12 08:19] LABS: FOLATE (FOLIC ACID) - SERUM 11.4 ng/mL (>3.0)
[2017-03-12 08:30] VITALS: BP 132/83
--- NOTE | 2017-03-12 08:30 | NUR ---
AM assesment completed. Pt moving around in bed without complaint this am, when questioned she rates pain at 2/10 and coments that she is feeling better every day. VSS as charted on flowsheet. Regular diet tray served, pt denies nausea but also states she does not have much of an appetite, encouraged her to try and eat a little if even just couple of bites, offered to get her something different from cafeteria but she denies. IV to left hand patent and infusing LR per orders, no c/o pain with touch at site. SCD's on bilat lower extremities and pump is on. She continue to have a cough but lungs clear bilat and per pt has begun to have clear sputum with cough. Bed is in low position and side rails up x 2 with call light and phone within her reach.
[2017-03-12 09:31] VITALS: BMI 42.0
--- NOTE | 2017-03-12 10:00 | NUR ---
Pt in shower per her request at this time. Bed linens changed and large ice water placed on bedside table.
--- NOTE | 2017-03-12 10:28 | NUR ---
Pt back to bed, IV reconnected and infusing, SCD's reapplied. Small cup of chicken soup fixed and taken to room per pt request. Denies any other needs at this time. Side rails up x 2 with call light and phone within reach.
--- NOTE | 2017-03-12 12:04 | NUR ---
LARGE ICE WATER AND CHICKEN NOODLE SOUP PER REQUEST. DENIES ANY OTHER NEEDS AT THIS TIME. 400ML EMPTIED FROM [facility] IN BATHROOM.
--- NOTE | 2017-03-12 15:00 | NUR ---
PT SITTING UP ON SIDE OF BED VISITING WITH COMPANY. LARGE CUP OF ICE WITH [employer] [place] [employer] PER REQUEST. DENIES NAUSEA AND RATES PAIN AT 0/10. CONTINUE TO HAVE COUGH THAT IS NOW MIDDLY PRODUCTIVE WITH CLEAR SPUTUM NOTED. DENIES NEEDS AT THIS TIME.
--- NOTE | 2017-03-12 17:43 | NUR ---
PT RINGS CL. RN TO BEDSIDE. PT REQUESTS TO SHOWER BEFORE EATING DINNER. PIV SL AT THIS TIME AND WRAPPED IN [place]. PT WILL RING CL WHEN FINISHED WITH SHOWER.
--- NOTE | 2017-03-12 18:00 | NUR ---
REPORT OF PT CONTINUE COUGH GIVEN VERBALLY TO MOUNA KNIGHT PER FOR PT TO HAVE HALLS.
--- NOTE | 2017-03-12 19:00 | NUR ---
REPORT GIVEN TO Asmita FERREIRA RN AND PT TO BE TRANSFERRED TO [facility].
--- NOTE | 2017-03-12 19:28 | NUR ---
RECEIVED PT AMBULATORY FROM 1278 TO ROOM 1221. INTRODUCED SELF. V/S TAKEN. ASSESSMENT DONE. STATUS 16 WEEKS ANTEPARTUM. ORIENTED TO ROOM AND BED CONTROLS. IVF D5 1/2NS TO L HAND AT 125cc/hr. IV SITE OK.
--- NOTE | 2017-03-12 20:00 | NUR ---
HEART TONES OBTAINED VIA DOPPLER PER THIS RN. FHR- 140'S-150'S.
[2017-03-12 20:02] VITALS: BP 114/67
--- NOTE | 2017-03-12 20:57 | NUR ---
FeSO4 TAB GIVEN ORDERED TIB. SEE E-MAR.
--- NOTE | 2017-03-12 22:11 | NUR ---
NEW IV BAG HUNG/ COUGH DROP GIVEN.
--- NOTE | 2017-03-13 00:10 | NUR ---
EYES CLOSED. LEFT UNDISTURBED.
[2017-03-13 02:36] VITALS: BP 111/69
--- NOTE | 2017-03-13 02:42 | NUR ---
MAXIPIME 2G IVPB INFUSING. NO ADVERSE REACTION NOTED. V/S STABLE. COUGH DROP GIVEN.
--- NOTE | 2017-03-13 05:00 | NUR ---
CANVAS BASTER JUMPBASTING HERE TO DRAW AM LAB. SLEPT FAIRLY WELL DURING THE NIGHT. CONTINUING PLAN OF CARE.
[2017-03-13 05:33] LABS: BASOPHILS 0.1 % (0-2); EOSINOPHILS 4.9 % (0-7); HEMATOCRIT 26.6 % (36.0-48.0); HEMOGLOBIN 9.5 g/dL (12-16); IMMATURE GRANULOCYTES 0.3 % (0-5); LYMPHOCYTES 21.4 % (15-50); MCH 30.9 pg (26.0-34.0); MCHC 35.7 g/dL (31.0-37.0); MCV 86.6 fL (80.0-100.0); MEAN PLATELET VOLUME 9.4 fL (7.4-10.4); MONOCYTES 7.8 % (2-11); NEUTROPHILS 65.5 % (40-80); PLATELET COUNT 218 10x3/uL (130-400); RBC 3.07 10x6/uL (4.00-5.40); RDW 12.4 % (11.5-14.5); WBC 6.8 10x3/uL (4.8-10.8)
[2017-03-13 05:56] LABS: CALC OSMOLALITY 272 mosm/kg (275-300); CARBON DIOXIDE 23.1 mmol/L (21.0-32.0); CHLORIDE - SERUM 106 mmol/L (98-107); CREATININE - SERUM 0.4 mg/dL (0.6-1.3); GLUCOSE 92 mg/dL (74-106); SODIUM 138 mmol/L (136-145); UREA NITROGEN 3 mg/dL (7-18); eGFR NON AFRICAN AMERICAN > 90 mL/min (90-120)
[2017-03-13 06:23] LABS: POTASSIUM - SERUM 2.8 mmol/L (3.5-5.1)
--- NOTE | 2017-03-13 06:30 | NUR ---
CRITICAL K+ LEVEL CALLED IN FROM LAB. (K+ 2.8).
--- NOTE | 2017-03-13 06:35 | NUR ---
DR. WILLARD IN 's LOUNGE. NOTIFIED HIM OF CRITICAL K+. STATES HE WILL PUT IN AN ORDER.
[2017-03-13 07:26] LABS: RAPID PLASMA REAGIN Non Reactive (Non Reactive)
[2017-03-13 07:30] VITALS: BP 117/71
--- NOTE | 2017-03-13 09:23 | NUR ---
PT IS SITTING UP IN BED FILLING OUT MENU. IRON AND POTASSIUM GIVEN PO. PT OFFERS NO COMPLAINTS.
[2017-03-13 12:17] LABS: SPE - A/G RATIO 0.9 (0.7-1.7); SPE - ALBUMIN 2.2 g/dL (2.9-4.4); SPE - ALPHA-1 GLOBULIN 0.4 g/dL (0.0-0.4); SPE - ALPHA-2 GLOBULIN 0.8 g/dL (0.4-1.0); SPE - BETA GLOBULIN 0.8 g/dL (0.7-1.3); SPE - GAMMA GLOBULIN 0.6 g/dL (0.4-1.8); SPE - M-SPIKE Not Observed g/dL (Not Observed); SPE - TOTAL PROTEIN 4.7 g/dL (6.0-8.5)
[2017-03-13 12:17] LABS: HEP B CORE AB TOTAL Negative (Negative); HEPATITIS C ANTIBODY 0.1 (0.0-0.9)
--- NOTE | 2017-03-13 14:02 | NUR ---
returned to bed after shower. talkative. showing this nurse pics of her children. no complaints voiced.
--- NOTE | 2017-03-13 17:00 | NUR ---
KELLIE URENA CM HAS BEEN HERE DISCUSSING WITH PT WHERE SHE IS GOING UPON DISCHARGE. PT STATES THAT SHE HAS NO PLACE TO GO. STATES THAT SHE IS HOMELESS.
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
--- NOTE | 2017-03-13 17:26 | NUR ---
TALKED WITH OSCAR CRAIG WITH [facility]. THEY HAVE MADE ARRANGEMENTS FOR HER TO GO TO A [facility] IN [place] AND THEY WILL TRANSPORT HER BACK AND FORTH TO [facility] FOR HER IV ANTIBIOTIC TREATMENTS. WILL NEED 11-12 MORE ANTIBIOTIC TREATMENTS.
--- NOTE | 2017-03-13 19:21 | NUR ---
PT WIRE FENCE BUILDER LIGHT, NEW BAG OF D5 1/2NS HUNG PER MD ORDERS, SEE EMAR, INFORMED PT THAT I WILL BE BACK SHORTLY TO DO ASSESSMENT, PT VERBALIZES UNDERSTANDING, REQUESTED AND PROVIDED COUGH DROP, ALCOHOL PAD TO REMOVE OLD TAPE, AND FRESH H20, PT DENIES FURTHER NEEDS OR PAIN AT THIS TIME
[2017-03-13 20:30] VITALS: BP 119/88
--- NOTE | 2017-03-13 20:30 | NUR ---
ASSESSMENT PER FLOW SHEET, VS OBTAINED, IV IN LEFT HAND INTACT WITH NO REDNESS OR EDEMA INFUSING D5 1/2NS AT 125 ML/HR PER MD ORDERS, SEE EMAR, PT REPORTS FLATUS, NO BM AND VOIDING BY SELF WITH NO DIFFICULTY, PT DENIES PAIN, REQUESTED AND SERVED COLA, DINNER TRAY REMOVED, DENIES FURTHER NEEDS
--- NOTE | 2017-03-13 21:11 | NUR ---
PT AWAKE, ADM 2100 MED PER MD ORDERS, SEE EMAR, PT REQUESTS TO TAKE A SHOWER, INFORMED PT THAT I WILL GET TOWELS, WASH CLOTHS AND FRESH GOWN TOGETHER AND BE BACK SHORTLY, PT VERBALIZES UNDERSTANDING
--- NOTE | 2017-03-13 21:35 | NUR ---
IV CONVERTED TO SALINE LOCK, SALINE LOCK WRAPPED WITH GOWN AND GLOVE, PT INST TO TRY NOT TO GET THAT HAND VERY WET, PT VERBALIZES UNDERSTANDING, PT PROVIDED TOWELS, WASH CLOTHS, AND CLEAN GOWN, PT INST TO USE CALL LIGHT IN BR FOR ANY ASSISTANCE, PT VERBALIZES UNDERSTANDING, DENIES FURTHER NEEDS
--- NOTE | 2017-03-13 22:02 | NUR ---
PT GAS JOCKEY LIGHT, PT OUT OF SHOWER, BACK IN BED, SALINE LOCK CONVERTED TO IV, D5 1/2 NS RESTARTED PER MD ORDERS, SEE EMAR, PT REQUESTED AND PROVIDED COUGH DROP, DENIES FURTHER NEEDS OR PAIN
--- NOTE | 2017-03-13 23:25 | NUR ---
PT RESTING WITH EYES CLOSED, RESP QUIET, NO DISTRESS NOTED, LEFT UNDISTURBED AT THIS TIME
--- NOTE | 2017-03-14 01:14 | NUR ---
PT RESTING WITH EYES CLOSED, RESP QUIET, NO DISTRESS NOTED, LEFT UNDISTURBED AT THIS TIME
[2017-03-14 03:05] VITALS: BP 113/60
--- NOTE | 2017-03-14 03:05 | NUR ---
PT RESTING WITH EYES CLOSED, AROUSES TO SOFT VERBAL STIMUALTION, VS OBTAINED, MAXIPINE AND NEW BAG OF D5 1/2 NS HUNG PER MD ORDERS, SEE EMAR, PT REQUESTED AND PROVIDED COUGH DROP, PT DENIES FURTHER NEEDS OR PAIN AT THIS TIME
--- NOTE | 2017-03-14 05:10 | NUR ---
PT RESTING WITH EYES CLOSED, RESP QUIET, NO DISTRESS NOTED, LEFT UNDISTURBED AT THIS TIME
--- NOTE | 2017-03-14 06:38 | NUR ---
SHIFT REPORT TO SYED HENRY RN
[2017-03-14 07:22] VITALS: BP 113/65
--- NOTE | 2017-03-14 07:22 | NUR ---
RCVD PT FROM Danika BERNARDO RN. PT LYING ON LT SIDE AND AWAKENS UPON THIS RN ENTERING ROOM. PT AAOX3. PT DENIES WANTING TO EAT BREAKFAST STATING "I JUST NEED TO SLEEP. I DIDN'T SLEEP GOOD LAST NIGHT." ADV PT TO EAT WHEN ABLE. PT VERBALIZED UNDERSTANDING. BREATH SOUNDS CLEAR & UNLABORED X2. BOWEL SOUNDS ACTIVE X4. NO EDEMA NOTED TO BLE. SL NOTED TO LT HAND WITH NO SIGNS OF ERYTHEMA OR EDEMA NOTED TO SITE. PT DENIES FURTHER NEEDS. BED LOW, WHEELS LOCKED, CL IN REACH, SIDE RAILS UP X2.
--- NOTE | 2017-03-14 08:47 | NUR ---
K-DUR AND FEROUS SULFATE GIVEN PER ORDERS. SEE EMAR. PT CURRENTLY EATING BREAKFAST AT THIS TIME AND DENIES FURTHER NEEDS.
--- NOTE | 2017-03-14 11:24 | NUR ---
PT RESTING WITH EYES CLOSED ON LT SIDE. PT AWAKENS UPON THIS RN ENTERING ROOM. VSS. SCHEDULED MEDICATIONS GIVEN AT THIS TIME. SEE EMAR. PT DENIES FURTHER NEEDS.
[2017-03-14 11:31] VITALS: BP 117/78
--- NOTE | 2017-03-14 11:43 | NUR ---
DECLAN COUGHDROP PROVIDED PER PT REQUEST. SEE EMAR. PT DENIES FURTHER NEEDS.
--- NOTE | 2017-03-14 14:05 | NUR ---
Despite CM efforts, unable to secure transportation for patient to get outpatient IV antibiotics through 03/24/17. Patient will need to stay here to get IV antibiotics for infection. CM notified Dr. Pham and Dr. Justin. Both physicians approved for patient to be moved to medical floor for duration of inpatient stay to get IV antibiotics. CM notifed Yair, pump house engineer and patient's nurse, Abby. CM discussed current plan with patient and she voiced undestanding and satisfaction with current plan of care.
--- NOTE | 2017-03-14 14:52 | NUR ---
MAXIPEME AND FEROUS SULFATE GIVEN PER ORDERS. SEE EMAR. PT CONT TO WORK ON LUNCH TRAY. PT DENIES FURTHER NEEDS AT THIS TIME.
--- NOTE | 2017-03-14 15:36 | NUR ---
REPORT CALLED TO ANDRE ON MED 2 WHO WILL BE RECEIVING PT TO ROOM 2111.
--- NOTE | 2017-03-14 15:42 | NUR ---
ALARIS PUMP ALARM SOUNDING "AIR IN LINE" PIV ASSESSED AND NO AIR NOTED IN IV TUBING. PT REQUESTS & RECEIVES HALLS COUGH DROPS. DENIES FURTHER NEEDS.
--- NOTE | 2017-03-14 16:55 | NUR ---
PT TRANSPORTED VIA W/C PER THIS RN TO [facility]. REPORT GIVEN TO ANDRE CHAMBRES.
--- NOTE | 2017-03-14 17:03 | NUR ---
PT TO ROOM. ALERT AND ORIENTED.
[2017-03-14 20:00] VITALS: BP 153/87
--- NOTE | 2017-03-14 21:34 | NUR ---
PATIENT UP TO SHOWER WITHOUT ASSIST, DENIES NEEDS OR PAIN AT THIS TIME. CALL LIGHT IN REACH. WILL CONTINUE TO MONITOR.
[2017-03-15] VITALS: BP 116/53
--- NOTE | 2017-03-15 01:46 | NUR ---
PT LYING ON RIGHT SIDE, EYES CLOSED, RESPIRATIONS EVEN AND UNLABORED. PT IS RESTING COMFORTABLY. CONTINUE TO MONITOR CLOSELY. BED LOW, CALL LIGHT IN REACH, SIDE RAILS X 2, HOB 25 DEGREES.
[2017-03-15 04:00] VITALS: BP 114/73
--- NOTE | 2017-03-15 04:27 | NUR ---
IV RE-SITED IN RIGHT WRIST, CALL LIGHT IN REACH.
--- NOTE | 2017-03-15 07:00 | NUR ---
RECEIVED REPORT. ASSUMED CARE OF PATIENT. CALL LIGHT WITHIN REACH. DENIES NEEDS. DRY COUGH, NON PRODUCTIVE NOTED. RESP EVEN AND UNLABORED. IV FLUIDS INFUSING ORDERED. NO DISTRESS.
[2017-03-15 08:00] VITALS: BP 114/50
--- NOTE | 2017-03-15 10:45 | NUR ---
SPOKE WITH AND RECEIVED ORDERS TO HOLD K+ UNTIL LAB IN [place]RA[place] TOMORROW IN AM. CALLED AND NOTIFIED PHARMACY. ORDERS PLACED.
--- NOTE | 2017-03-15 11:21 | NUR ---
MEDICATED FOR PAIN IN LOWER ABD, ABOVE PUBIC AREA. NO DISTRESS. CALL LIGHT WITHIN REACH. IV FLUIDS INFUSING ORDERED.
[2017-03-15 12:00] VITALS: BP 104/49
[2017-03-15 15:59] VITALS: BP 126/78
--- NOTE | 2017-03-15 18:34 | NUR ---
PATIENT LYING IN BED WITH EYES OPEN. NO DISTRESS. DENIES NEEDS.
[2017-03-15 20:00] VITALS: BP 136/84
--- NOTE | 2017-03-15 20:21 | NUR ---
HS MEDS GIVEN WITH FRESH ICE WATER. PT DENIES PAIN OR NEEDS, BED LOW, CL IN REACH.
--- NOTE | 2017-03-15 23:56 | NUR ---
HS SNACK PROVIDED AT PT REQUEST, DENIES PAIN OR OTHER NEEDS.
[2017-03-16] VITALS: BP 116/45
--- NOTE | 2017-03-16 01:27 | NUR ---
RESTING WITH EYES CLOSED, RESPERATIONS EVEN, NO S/S DISTRESS NOTED.
[2017-03-16 04:00] VITALS: BP 125/75
--- NOTE | 2017-03-16 04:31 | NUR ---
HYDROTHERAPIST AT BED SIDE TO OBTAIN VITAL SIGNS.
[2017-03-16 05:39] LABS: CALC OSMOLALITY 269 mosm/kg (275-300); CALCIUM 8.8 mg/dL (8.5-10.1); CARBON DIOXIDE 24.4 mmol/L (21.0-32.0); CHLORIDE - SERUM 102 mmol/L (98-107); CREATININE - SERUM 0.5 mg/dL (0.6-1.3); GLUCOSE 88 mg/dL (74-106); POTASSIUM - SERUM 3.9 mmol/L (3.5-5.1); SODIUM 137 mmol/L (136-145); UREA NITROGEN 4 mg/dL (7-18); eGFR NON AFRICAN AMERICAN > 90 mL/min (90-120)
--- NOTE | 2017-03-16 07:00 | NUR ---
RECEIVED REPORT. ASSUMED CARE OF PATIENT. CALL LIGHT WITHIN REACH. RESTING IN BED WITH EYES CLOSED, EASILY AROUSED. RESP EVEN AND UNLABORED. IV FLUIDS INFUSING ORDERED. NO DISTRESS.
[2017-03-16 08:00] VITALS: BP 116/67
--- NOTE | 2017-03-16 11:40 | NUR ---
SITTING UP IN BED, MALE VISITOR AT BEDSIDE. CALL LIGHT WITHIN REACH. K+ 3.9. 40 MEQ OF KDUR HELD AT THIS TIME PATIENT IS NOT ON ANY DIURETICS, GOOD PO INTAKE. NO DISTRESS. NO N/V/ OR DIARRHEA.
[2017-03-16 16:00] VITALS: BP 118/68
--- NOTE | 2017-03-16 17:17 | NUR ---
SITTING IN BED. SODA PROVIDED UPON REQUEST. CALL LIGHT WITHIN REACH. NO DISTRESS. DENIES PAIN. IV FLUIDS INFUSING ORDERED.
--- NOTE | 2017-03-16 19:37 | NUR ---
RESUMED CARE OF PT, LYING IN BED RESPIRATIONS EVEN AND UNLABORED ON ROOM AIR. RIGHT WRIST INFUSING D5 1/2 NS @ 125. NO NEEDS AT THIS TIME, CALL LIGHT IN REACH. WILL CONTINUE TO MONITOR. SEE NURSE ASSESSMENT.
[2017-03-16 20:00] VITALS: BP 128/74
[2017-03-17] VITALS (7 sets, daily range): BP systolic 100–124; BP diastolic 46–82
--- NOTE | 2017-03-17 00:36 | NUR ---
LYING IN BED WITH EYES CLOSED, RESTING COMFORTABLLY
--- NOTE | 2017-03-17 06:21 | NUR ---
NO CHANGES FROM PREVIOUS ASSESSMENT.
--- NOTE | 2017-03-17 07:18 | NUR ---
AM ROUNDING DONE WITH PATIENT APPEARING ASLEEP. RESP ARE EVEN AND NON LABORED. MALE MEMBER ASLEEP IN CHAIR. IV SEEN TO RIGHT WRIST OF D 5 1/2 NS INFUSING AT 75 CC/HR WITHOUT PROBLEMS. WILL MONITOR.
--- NOTE | 2017-03-17 20:12 | NUR ---
PT SITTING UP IN BED, AWAKE, ALERT, ORIENTED, STATES THAT HER DINNER DID NOT SIT WELL WITH HER, BUT DENIES ANY NEEDS. WILL CONTINUE TO MONITOR CLOSELY. BED LOW, CALL LIGHT IN REACH, SIDE RAILS X 2.
[2017-03-18 04:32] VITALS: BP 106/48
[2017-03-18 05:26] LABS: BASOPHILS 0.2 % (0-2); EOSINOPHILS 4.3 % (0-7); HEMATOCRIT 37.1 % (36.0-48.0); HEMOGLOBIN 12.6 g/dL (12-16); LYMPHOCYTES 15.7 % (15-50); MCH 30.4 pg (26.0-34.0); MCV 89.4 fL (80.0-100.0); MONOCYTES 6.4 % (2-11); NEUTROPHILS 71.4 % (40-80); RBC 4.15 10x6/uL (4.00-5.40); RDW 12.4 % (11.5-14.5); WBC 12.5 10x3/uL (4.8-10.8)
[2017-03-18 05:28] LABS: ALBUMIN 2.7 g/dL (3.4-5.0); ALKALINE PHOSPHATASE 98 U/L (46-116); ALT (SGPT) 29 U/L (10-68); CALC OSMOLALITY 267 mosm/kg (275-300); CALCIUM 9.2 mg/dL (8.5-10.1); CARBON DIOXIDE 25.9 mmol/L (21.0-32.0); CHLORIDE - SERUM 100 mmol/L (98-107); CREATININE - SERUM 0.6 mg/dL (0.6-1.3); GLUCOSE 77 mg/dL (74-106); POTASSIUM - SERUM 4.1 mmol/L (3.5-5.1); SODIUM 136 mmol/L (136-145); UREA NITROGEN 5 mg/dL (7-18); eGFR NON AFRICAN AMERICAN > 90 mL/min (90-120)
[2017-03-18 05:29] LABS: PLATELET COUNT 410 10x3/uL (130-400)
--- NOTE | 2017-03-18 07:30 | NUR ---
AM ROUNDING DONE WITH PATIENT APPEARING TO BE ASLEEP. RESP ARE EVEN AND NON LABORED. MALE MEMBER IN CHAIR IS SLEEPING ALSO. RIGHT WRIST SEEN WITH D 5 1/2 NS INFUSING AT 75 CC/HR. ON ROOM AIR. WILL MONITOR.
[2017-03-18 08:06] VITALS: BP 98/51
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
--- NOTE | 2017-03-18 10:08 | NUR ---
[facility] FRESH WORK INSPECTOR HERE TO SPEAK TO PATIENT.
[2017-03-18 12:17] VITALS: BP 125/72
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
--- NOTE | 2017-03-18 17:51 | NUR ---
DR CAR HERE TO SEE PATIENT.
[2017-03-18 19:33] VITALS: BP 122/74
--- NOTE | 2017-03-18 19:56 | NUR ---
PT SITTING UP IN BED, AWAKE, ALERT, ORIENTED, STATES SHE IS TALKING TO HER BOYFRIEND ON HER CELL PHONE. PT DENIES ANY NEEDS. CONTINUE TO MONITOR CLOSELY.
--- NOTE | 2017-03-18 23:18 | NUR ---
PT LYING IN BED ON HER RIGHT SIDE, STATES SHE WAS HAVING SOME ABDOMINAL DISCOMFORT R/T HER BABY, DENIES ANY BLEEDING, NAUSEA, OR ANY OTHER COMPLICATIONS. PT STATES SHE THINKS IT IS FROM STRETCHING R/T HER . PT DENIES ANY OTHER NEEDS. WILL CONTINUE TO MONITOR CLOSELY.
[2017-03-19 00:30] VITALS: BP 133/67
--- NOTE | 2017-03-19 01:30 | NUR ---
PT RESTING COMFORTABLY, DENIES ANY MORE PAIN, DENIES ANY NEEDS. CONTINUE TO MONITOR CLOSELY. BED LOW, CALL LIGHT IN REACH, SIDE RAILS X 2, HOB 15 DEGREES.
[2017-03-19 04:49] VITALS: BP 106/65
--- NOTE | 2017-03-19 07:20 | NUR ---
AM ROUNDING DONE, PATIENT AROUSES EASILY. DENIES ANY NEEDS AT PRESENT TIME. IV SEEN TO RIGHT WRIST OF D 5 1/2 NS INFUSING AT 125 WITHOUT PROBLEMS. ON ROOM AIR, WILL CONTINUE TO MONITOR.
[2017-03-19 08:11] VITALS: BP 121/64
--- NOTE | 2017-03-19 08:29 | NUR ---
1ST DAY PATIENT REPORTS "ITCHING" AND A RASH UNDER HER RIGHT ARM. THERE IS SOME REDNESS TO IT, ALSO ALONG BREASTS AND BACK. PATIENT STATES THAT THIS HAS BEEN A PROBLEM EVEN BEFORE ADMIT. WILL HAVE MD LOOK AT IT.
[2017-03-19 12:14] VITALS: BP 156/92
--- NOTE | 2017-03-19 12:24 | NUR ---
SITTING UP IN BED EATING LUNCH. DENIES ANY NEEDS. WILL CONTINUE TO MONITOR.
--- NOTE | 2017-03-19 12:53 | NUR ---
Nutrition Follow Up: Pt is eating 56% meal avg on a regular diet. +BM 03/18/17. Wt stable. Labs and meds reviewed. Rec continue current diet. RD following.
--- NOTE | 2017-03-19 14:48 | NUR ---
PATIENT SITTING UP IN BED, DENIES ANY NEEDS. CPOC
[2017-03-19 15:55] VITALS: BP 113/80
--- NOTE | 2017-03-19 17:04 | NUR ---
PATIENT SITTING UP IN BED, EATING DINNER. DENIES ANY NEEDS. CPOC
--- NOTE | 2017-03-19 18:39 | NUR ---
PATIENT SITTING UP IN BED, DENIES ANY NEEDS OR PAIN. BED LOW AND LOCKED. CALL LIGHT IN REACH. CPOC
[2017-03-19 19:00] VITALS: BP 152/71
--- NOTE | 2017-03-19 20:20 | NUR ---
PT AWAKE, ALERT, ORIENTED, IN THE SHOWER AT THIS TIME. LINEN CHANGED. PT DENIES ANY NEEDS. WILL CONTINUE TO MONITOR CLOSELY.
--- NOTE | 2017-03-19 20:59 | NUR ---
PT AND I WALKED AROUND THE UNIT 4 TIMES. PT TOLERATED WALKING WELL. I HAVE ENCOURAGED PT TO CONTINUE TO WALK WHENEVER SHE WANTED TO, BUT TO NOTIFY US FIRST. PT DENIES ANY NEEDS AT THIS TIME. CONTINUE TO MONITOR CLOSELY.
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
[2017-03-20] VITALS: BP 132/82
--- NOTE | 2017-03-20 00:03 | NUR ---
PT SITTING UP IN BED, TALKING INTO HER CELL PHONE, STATES SHE IS TALKING TO HER BOYFRIEND. PT DENIES ANY NEEDS. CONTINUE TO MONITOR CLOSELY.
[2017-03-20 04:00] VITALS: BP 106/43
--- NOTE | 2017-03-20 06:37 | NUR ---
PT RESTING COMFORTABLY, BOYFRIEND IN CHAIR. NO NEEDS. CONTINUE TO MONITOR CLOSELY.
--- NOTE | 2017-03-20 07:15 | NUR ---
RECIEVED REPORT ON PATIENT, PATIENT IS RESTING AT THIS TIME, NAD NOTED. PATIENT HAS A R WRIST IV THAT IS INFUSING WITH D51/2NS AT 125ML/HR. BOYFRIEND AT BEDSIDE. PATIENT DENIES ANY NEEDS AT THIS TIME. BED LOW AND LOCKED. CPOC
[2017-03-20 07:46] VITALS: BP 108/55
--- NOTE | 2017-03-20 09:00 | NUR ---
MORNING MEDICATIONS GIVEN WITH NO ISSUES. BED LOW AND LOCKED. CPOC
--- NOTE | 2017-03-20 11:15 | NUR ---
PATIENT RESTING, NAD NOTED AT THIS TIME. AROUSES TO VOICE, DENIES ANY NEEDS. CPOC
[2017-03-20 12:00] VITALS: BP 134/72
--- NOTE | 2017-03-20 13:30 | NUR ---
PATIENT GETTING SHOWER AT THIS TIME. WILL CONT TO MONITOR. CPOC
--- NOTE | 2017-03-20 15:30 | NUR ---
PATIENT REQUESTING ICE CREAM AND GRAM CRACKERS. WILL GIVE. DENIES ANY OTHER NEEDS. CPOC
[2017-03-20 16:11] VITALS: BP 114/76
--- NOTE | 2017-03-20 17:41 | NUR ---
PATIENT EATING DINNER AT THIS TIME, NO NEEDS VOICED. DENIES PAIN. CPOC
--- NOTE | 2017-03-20 18:38 | NUR ---
PATIENT IV INFILTRATED, IV DC WITH CATH TIP INTACT. PATIENT REFUSING TO GET ANOTHER IV AT THIS TIME, WANTS TO WAIT TIL HER ARM QUITS HURTING, WILL PASS ON TO GLOVE CLEANER. CPOC
--- NOTE | 2017-03-20 19:52 | NUR ---
PT IN BED RESTING QUEITLY. STATES SHE IS GOING TO TAKE A SHOWER SOON. DENIES ANY PAIN OR NEEDS AT THIS TIME. BED IN LOW POSITION, CALL LIGHT WITHIN REACH.
[2017-03-20 20:00] VITALS: BP 143/84
--- NOTE | 2017-03-20 20:50 | NUR ---
PT CALLED BECAUSE SHE STATED SHE GOT OUT OF THE SHOWER AND FELT LIGHT HEADED. VSS. TOLD PT TO LAY BACK, TURNED LIGHTS OFF, AND GAVE HER SOME WATER. WILL CTM.
--- NOTE | 2017-03-20 22:00 | NUR ---
PT IN BED RESTING QUEITLY. STATES THAT SHE FEELS BETTER AND DOES NOT HAVE ANY DIZZINESS. DENIES ANY PAIN OR NEEDS AT THIS TIME. BED IN LOW POSITION, CALL LIGHT WITHIN REACH.
--- NOTE | 2017-03-21 00:08 | NUR ---
NEW IV PLACED IN RT FOREARM. 22G. ONE ATTEMPT. CURRENTLY INFUSING D5 1/2 NS @100ML/HR. DENIES ANY PAIN OR NEEDS AT THIS TIME. WILL CTM.
--- NOTE | 2017-03-21 02:35 | NUR ---
PT IN BED RESTING QUEITLY. CEFEPIME IVPB HUNG PER ORDER. DENIES ANY PAIN OR NEEDS AT THIS TIME. BED IN LOW POSITION, CALL LIGHT WITHIN REACH.
[2017-03-21 04:00] VITALS: BP 116/74
--- NOTE | 2017-03-21 07:23 | NUR ---
RECIEVED REPORT ONPATIENT, PATIENT IS RESTING AT THIS TIME, NAD NOTED. PATIENT HAS A R FA IV THAT IS INFUSING WITH D5 1/2NS AT 100ML/HR. BED IS LOW, CALL LIGHT IN REACH. WILL CONT TO MONITOR PATIENT. CPOC
[2017-03-21 08:41] VITALS: BP 130/35
--- NOTE | 2017-03-21 09:00 | NUR ---
MORNING MEDICATION GIVEN WITH NO ISSUES. PATIENT DENIES ANY NEEDS. BED LOW AND LOCKED. CPOC
--- NOTE | 2017-03-21 09:48 | NUR ---
Nutrition Follow Up: Pt is eating 86% meal avg on a regular diet. Wt gain noted. +BM 03/18/17. Meds and labs reviewed. Rec continue current diet. RD following.
--- NOTE | 2017-03-21 11:21 | NUR ---
PATIENT RESTING, DENIES ANY NEEDS AT THIS TIME. CPOC
[2017-03-21 13:58] VITALS: BP 129/62
--- NOTE | 2017-03-21 15:35 | NUR ---
PATIENT SITTING UP IN BED, WATCHING TV, DENIES ANY NEEDS OR PAIN. CPOC
--- NOTE | 2017-03-21 17:00 | NUR ---
PATIENT SITTING UP IN BED EATING DINNER, DENIES ANY NEEDS AT THIS TIME. BED LOW AND LOCKED. CALL LIGHT IN REACH. CPOC
--- NOTE | 2017-03-21 18:20 | NUR ---
PATIENT RESTING IN BED, DENIES ANY NEEDS AT THIS TIME. BED LOW AND LOCKED. CPOC
[2017-03-21 20:00] VITALS: BP 125/78
--- NOTE | 2017-03-21 20:14 | NUR ---
PT IN BED RESTING QUEITLY. JUST TOOK A SHOWER. DENIES ANY PAIN OR NEEDS AT THIS TIME. BED IN LOW POSITION, CALL LIGHT WITHIN REACH.
[2017-03-22] VITALS: BP 119/82
--- NOTE | 2017-03-22 02:38 | NUR ---
PT IN BED RESTING QUEITLY. DENIES ANY PAIN OR NEEDS AT THIS TIME. BED IN LOW POSITION, CALL LIGHT WITHIN REACH.
[2017-03-22 04:00] VITALS: BP 112/65
--- NOTE | 2017-03-22 07:10 | NUR ---
RECEIVED REPORT. ASSUMED CARE OF PATIENT. RESTING WITH EYES CLOSED. RESP EVEN AND UNLABORED. NO DISTRESS. CALL LIGHT WITHIN REACH. IV FLUIDS INFUSING ORDERED. NO DISTRESS.
[2017-03-22 08:00] VITALS: BP 140/50
--- NOTE | 2017-03-22 09:03 | NUR ---
BMP ORDERED AT THIS TIME. PATIENT IS CONTINUING TO RECEIVE K+ 40 MEQ TID AND NO CURRENT K+ LEVEL SINCE 03/18/17. K+ SUPPLEMENT NOT ADMINISTERED AT THIS TIME DUE TO UNKNOWN K+ LEVEL.
[2017-03-22 09:46] LABS: CALC OSMOLALITY 273 mosm/kg (275-300); CARBON DIOXIDE 23.7 mmol/L (21.0-32.0); CHLORIDE - SERUM 105 mmol/L (98-107); CREATININE - SERUM 0.6 mg/dL (0.6-1.3); POTASSIUM - SERUM 3.8 mmol/L (3.5-5.1); SODIUM 138 mmol/L (136-145); UREA NITROGEN 5 mg/dL (7-18); eGFR NON AFRICAN AMERICAN > 90 mL/min (90-120)
[2017-03-22 09:56] LABS: GLUCOSE 124 mg/dL (74-106)
--- NOTE | 2017-03-22 11:07 | NUR ---
RESTING IN BED WITH EYES CLOSED. EASILY AROUSED. K+ ADMINISTERED. K+ 3.8 AND RECEIVING FLUIDS. CALL LIGHT WITHIN REACH. NO DISTRESS.
[2017-03-22 11:24] VITALS: BP 106/64
[2017-03-22 16:00] VITALS: BP 122/68
--- NOTE | 2017-03-22 17:17 | NUR ---
PATIENT SITTING IN BED CONSUMING PM MEAL. CALL LIGHT WITHIN REACH. DENIES NEEDS. NO DISTRESS. IV FLUIDS INFUSING ORDERED.
--- NOTE | 2017-03-22 20:00 | NUR ---
PT RESTING IN BED WITH NO DISTRESS. WATCHING TV. IV TO RFA WITH D5.45NS @ 125ML/HR. SITE C/D/I/NO REDNESS. SEE SHIFT ASSESSMENT. CPOC.
[2017-03-22 22:14] VITALS: BP 123/75
--- NOTE | 2017-03-22 22:23 | NUR ---
BEDTIME MEDS GIVEN. ALSO GAVE 3RD DOSE OF POTASSIUM THAT WAS HELD THIS MORNING SINCE HER POTASSIUM LEVEL IS 3.8. IVF INFUSING. WILL MONITOR.
[2017-03-23] VITALS: BP 124/88
--- NOTE | 2017-03-23 03:35 | NUR ---
PT RESTING WITH EYES CLOSED. IV ABT UP AND INFUSING. CPOC.
[2017-03-23 04:00] VITALS: BP 127/71
[2017-03-23 04:55] LABS: BASOPHILS 0.2 % (0-2); EOSINOPHILS 2.6 % (0-7); HEMATOCRIT 33.4 % (36.0-48.0); HEMOGLOBIN 11.2 g/dL (12-16); LYMPHOCYTES 19.4 % (15-50); MCH 30.4 pg (26.0-34.0); MCHC 33.5 g/dL (31.0-37.0); MCV 90.5 fL (80.0-100.0); MEAN PLATELET VOLUME 8.9 fL (7.4-10.4); MONOCYTES 7.6 % (2-11); NEUTROPHILS 69.2 % (40-80); RBC 3.69 10x6/uL (4.00-5.40); RDW 12.5 % (11.5-14.5); WBC 11.6 10x3/uL (4.8-10.8)
[2017-03-23 05:00] LABS: PLATELET COUNT 285 10x3/uL (130-400)
[2017-03-23 05:30] LABS: ALBUMIN 2.8 g/dL (3.4-5.0); ALKALINE PHOSPHATASE 84 U/L (46-116); ALT (SGPT) 54 U/L (10-68); CALC OSMOLALITY 274 mosm/kg (275-300); CALCIUM 9.2 mg/dL (8.5-10.1); CARBON DIOXIDE 24.9 mmol/L (21.0-32.0); CHLORIDE - SERUM 105 mmol/L (98-107); CREATININE - SERUM 0.5 mg/dL (0.6-1.3); GLUCOSE 85 mg/dL (74-106); PROTEIN - SERUM 7.2 g/dL (6.4-8.2); SODIUM 140 mmol/L (136-145); UREA NITROGEN 5 mg/dL (7-18); eGFR NON AFRICAN AMERICAN > 90 mL/min (90-120)
--- NOTE | 2017-03-23 07:20 | NUR ---
RECEIVED REPORT. ASSUMED CARE OF PATIENT. RESTING IN BED ON RIGHT LATERAL SIDE. RESP EVEN AND UNLABORED. IV FLUIDS INFUSING ORDERED. NO DISTRESS.
[2017-03-23 08:00] VITALS: BP 109/56
--- NOTE | 2017-03-23 11:03 | NUR ---
RESTING IN BED WITH EYES CLOSED, EASILY AROUSED. SODA PROVIDED.TOLERATES MEDICATIONS. IV FLUIDS INFUSING ORDERED. NO DISTRESS. DENIES NEEDS AT THIS TIME, JUST WANTS TO REST.
[2017-03-23 12:00] VITALS: BP 126/45
[2017-03-23 16:00] VITALS: BP 113/77
--- NOTE | 2017-03-23 18:51 | NUR ---
HERE FOR ROUNDS. PATIENT WILL D/C MID DAY TOMORROW. LABS IN AM. PATIENT STABLE THROUGHOUT SHIFT. PATIENT SITTING IN BED. SHE HAS PACKED ALL OF HER BELONGINGS. GETTING READY TO D/C TO [place] TOMORROW. ORDERS RECEIVED TO D/C K+.
[2017-03-23 20:00] VITALS: BP 125/71
--- NOTE | 2017-03-23 22:32 | NUR ---
PT HAS SHOWERED AND NOW BACK TO BED. BEDTIME MED GIVEN. IVF RESTARTED. NO OTHER NEEDS.
[2017-03-24] VITALS: BP 107/58
[2017-03-24 04:00] VITALS: BP 109/64
[2017-03-24 06:25] LABS: HEMATOCRIT 31.3 % (36.0-48.0); HEMOGLOBIN 10.5 g/dL (12-16); MCH 30.2 pg (26.0-34.0); MCHC 33.5 g/dL (31.0-37.0); MCV 89.9 fL (80.0-100.0); MEAN PLATELET VOLUME 9.5 fL (7.4-10.4); PLATELET COUNT 290 10x3/uL (130-400); RBC 3.48 10x6/uL (4.00-5.40); RDW 12.6 % (11.5-14.5); WBC 11.1 10x3/uL (4.8-10.8)
[2017-03-24 06:57] LABS: CALC OSMOLALITY 269 mosm/kg (275-300); CALCIUM 8.9 mg/dL (8.5-10.1); CARBON DIOXIDE 24.9 mmol/L (21.0-32.0); CHLORIDE - SERUM 104 mmol/L (98-107); CREATININE - SERUM 0.5 mg/dL (0.6-1.3); GLUCOSE 77 mg/dL (74-106); POTASSIUM - SERUM 3.9 mmol/L (3.5-5.1); SODIUM 137 mmol/L (136-145); UREA NITROGEN 4 mg/dL (7-18); eGFR NON AFRICAN AMERICAN > 90 mL/min (90-120)
[2017-03-24 07:06] LABS: EOSINOPHILS 2 % (0-7); HYPOCHROMASIA OCC; LYMPHOCYTES 15 % (15-50); MONOCYTES 4 % (2-11); NEUTROPHILS 75 % (40-80); PLATELET ESTIMATE NORMAL; ROULEAUX OCC
--- NOTE | 2017-03-24 07:15 | NUR ---
RECIEVED REPORT ON PATIENT, PATIENT IS RESTING AT THIS TIME. AROUSES TO VOICE, DENIES ANY NEEDS OR COMPLAINTS. PATIENT BED IS LOW AND LOCKED, CALL LIGHT IN REACH. CPOC
--- NOTE | 2017-03-24 07:28 | NUR ---
PT HS SLEPT WELL THIS NIGHT. IV ABT GIVEN. NO NEEDS VOICED. PLANS FOR DISCHARGE FOR TODAY. REPORT TO ONCOMING RN.
[2017-03-24 08:00] VITALS: BP 113/61
--- NOTE | 2017-03-24 09:15 | NUR ---
MORNING MEDICATIONS GIVEN WITH NO ISSUES. PATIENT DENIES ANY NEEDS. CPOC
--- NOTE | 2017-03-24 11:56 | NUR ---
Patient Name: SHAHNAZ PANDYA Encounter No: [id number] : 1990 Primary Insurance: MEDICAID [place] Anticipated DC Date: 03-24-2017 Planned Disposition: Home DCP follow-up note: CM RECEIVED DISCHARGE ORDER, MET WITH PT IN ROOM REGARDING DISCHARGE PLAN AND NEEDS. PT DENIES DISCHARGE NEEDS AT THIS TIME, REPORTS HER FRIEND IN [place] FOUND OUT SHE WAS HOMELESS AND HE IS LETTING HER MOVE IN WITH HIM. PT REPORTS HER FRIEND WILL PICK HER UP AFTER 5PM TODAY AND TRANSPORT HER HOME. PT'S DISCHARGE ADDRESS IS [address] [place] [address]. [id number]. [employer] NURSE NOTIFIED. IDRIS ALVARADO, CASE MANAGEMENT
--- NOTE | 2017-03-24 12:25 | NUR ---
PATIENT SITTING UP IN BED EATING LUNCH . DENIES ANY NEEDS. CPOC
[2017-03-24] MEDS ORDERED: PRENATAL COMPLE1 TAB PO (13:13)
[2017-03-24] MEDS ORDERED: MACROBID100 MG PO (13:14)
--- NOTE | 2017-03-24 14:30 | NUR ---
PATIENT RESTING, DENIES ANY NEEDS OR PAIN. BED LOW AND LOCKED. CPOC
[2017-03-24 16:00] VITALS: BP 117/66
--- NOTE | 2017-03-24 17:22 | NUR ---
PATIENT IV DC WITH CATH TIP INTACT. DC INSTRUCTIONS GIVEN. DENIES ANY QUESTIONS. PATIENT READY FOR DC
== END 2017-03-24 17:27 | disposition home or self-care (01) | DRG 781 ==
LOC: D.ER 15:10 → D.M2 23:55 → D.LD 23:55 → D.WS 03-12 19:28 → D.M2 03-14 17:02
PROVIDERS: Emergency Medicine; Family Medicine; Legal Medicine; Obstetrics & Gynecology; Student in an Organized Health Care Education/Training Program; ADMIT Obstetrics & Gynecology
DX: O98.812 Other maternal infectious and parasitic diseases complicating pregnancy, second trimester (principal); A41.89 Other specified sepsis; N12 Tubulo-interstitial nephritis, not specified as acute or chronic; N13.30 Unspecified hydronephrosis; B96.89 Other specified bacterial agents as the cause of diseases classified elsewhere; Z3A.16 16 weeks gestation of pregnancy; O99.012 Anemia complicating pregnancy, second trimester; O99.89 Other specified diseases and conditions complicating pregnancy, childbirth and the puerperium; Z59.0 Homelessness; Z87.891 Personal history of nicotine dependence